=== PATIENT | female | born 1990 | race African-American/Black ===

== ENCOUNTER 2021-08-10 12:41 | Emergency (ER) | payer OTHER ==
[~2021-08-10] VITALS: Ht 175.3 cm; Wt 113.4 kg
[~2021-08-10 12:41] MED LIST: NOHOMEMEDICATIONS; NORCO 5-325 TA1 EACH PO
[2021-08-10] MEDS ORDERED: FLEXERIL PO (16:12)
[2021-08-10 16:20] VITALS: BP 139/85
== END 2021-08-10 16:21 | disposition home or self-care (01) ==
LOC: M.ERS 12:41
DX: M25.561 Pain in right knee (principal); M79.661 Pain in right lower leg; F17.210 Nicotine dependence, cigarettes, uncomplicated; Z98.890 Other specified postprocedural states